=== PATIENT | male | born 1965 | race Caucasian/White ===

== ENCOUNTER 2016-08-13 19:42 | Emergency (ER) | payer OTHER ==
--- NOTE | 2016-08-13 20:37 | RAD ---
Exam: Three-view left foot COMPARISON: None INDICATION: 80 pounds head board fell on left foot. Pain first through fifth metatarsals. Findings: AP, lateral and oblique views of the left foot were obtained. No apparent soft tissue swelling. Overall normal bone mineralization. Alignment is normal. No acute fracture is identified. IMPRESSION: No acute osseous abnormality in the left foot.
== END 2016-08-13 20:51 | disposition home or self-care (01) ==
LOC: ED 19:42
DX: S93.602A Unspecified sprain of left foot, initial encounter (principal); J45.909 Unspecified asthma, uncomplicated; Z86.19 Personal history of other infectious and parasitic diseases; W22.8XXA Striking against or struck by other objects, initial encounter